=== PATIENT | male | born 1995 | race American Indian/Alaskan Native ===

== ENCOUNTER 2017-02-26 03:53 | Emergency (ER) | payer SELFPAY ==
[2017-02-26 04:05] VITALS: BP 124/73
== END 2017-02-26 04:02 | disposition left against medical advice (07) ==
LOC: ED 03:53
DX: M79.605 Pain in left leg (principal); Z53.21 Procedure and treatment not carried out due to patient leaving prior to being seen by health care provider

== ENCOUNTER 2017-05-09 04:46 | Emergency (ER) | payer SELFPAY ==
[2017-05-09 05:50] VITALS: BP 119/70
--- NOTE | 2017-05-09 07:19 | Emergency Department Report ---
ED Headache HPI - General Chief Complaint: Headache Stated Complaint: HEADACHE Time Seen by Provider: 05/09/17 07:11 - History of Present Illness Allergies/Adverse Reactions: Allergies mushroom Allergy (Verified 03/27/16 20:07) Vomiting mustard Allergy (Uncoded 03/27/16 20:07) Rash Home Medications: Ambulatory Orders Ibuprofen [Motrin] 600 mg PO Q8H PRN #20 tablet 03/27/16 Ciprofloxacin HCl [Ciprofloxacin TAB] 500 mg PO BID #14 tablet 04/19/16 ED Review of Systems ROS: Stated complaint: HEADACHE Other details as noted in HPI ED Past Medical Hx - Past Medical History Hx Psychiatric Treatment: Yes (bipolar, add) Hx Asthma: Yes - Surgical History Past Surgical History?: Yes - Social History Smoking Status: Current Every Day Smoker Substance Use Type: None - Medications Home Medications: Home Medications Medication Instructions Recorded Confirmed Last Taken Type Ibuprofen [Motrin] 600 mg PO Q8H PRN #20 tablet 03/27/16 Unknown Rx Ciprofloxacin HCl [Ciprofloxacin 500 mg PO BID #14 tablet 04/19/16 Unknown Rx TAB] ED Physical Exam - General Limitations: No Limitations ED Course Vital Signs 05/09/17 05:45 Temperature 98.6 F Pulse Rate 90 Respiratory 16 Rate Blood Pressure 119/70 O2 Sat by Pulse 99 Oximetry Critical care attestation.: If time is entered above; I have spent that time in minutes in the direct care of this critically ill patient, excluding procedure time. ED Disposition Condition: Stable Referrals: PRIMARY CARE, [Primary Care Provider] - 3-5 Days
== END 2017-05-09 07:11 | disposition left against medical advice (07) ==
LOC: ED 04:46
DX: R51 Headache (principal); Z53.21 Procedure and treatment not carried out due to patient leaving prior to being seen by health care provider

== ENCOUNTER 2017-06-01 21:06 | Emergency (ER) | payer SELFPAY ==
--- NOTE | 2017-06-02 07:42 | Emergency Department Report ---
ED ENT HPI - General Chief complaint: Upper Respiratory Infection Stated complaint: COLD,RUNNING NOSE,ARM,TOES PAIN Time Seen by Provider: 06/02/17 07:32 Source: patient Mode of arrival: Ambulatory Limitations: No Limitations - History of Present Illness Initial comments: This is a 21-year-old male nontoxic, well nourished in appearance, no acute signs of distress presents to the ED with c/o of rhinorrhea and sore throat 3 days. Patient describes her throat as aching level of 10. Patient denies any drooling or hoarseness. Denies any facial swelling. Denies any chest pain, shortness of breath, fever, chills or nausea, vomiting, headache, stiff neck, abdominal pain, numbness or tingling. Patient denies any recent travels or long car rides. Patient allergies to mustard and mushrooms. Past medical history includes asthma and psychiatric. MD complaint: sore throat, other (rhinorrhea) -: days(s) (3) Location: throat Severity: mild Severity scale (0 -10): 8 Quality: aching Consistency: constant Improves with: none Worsens with: none Associated Symptoms: pain with swallowing, sore throat. denies: fever, cough, gum swelling, toothache, tinnitus, hearing loss, discharge from ear, rhinorrhea - Related Data Previous Rx's Medication Instructions Recorded Last Taken Type Ibuprofen [Motrin] 600 mg PO Q8H PRN #20 tablet 03/27/16 Unknown Rx Ciprofloxacin HCl [Ciprofloxacin 500 mg PO BID #14 tablet 04/19/16 Unknown Rx TAB] Amoxicillin 500 mg PO Q12H #20 capsule 06/02/17 Unknown Rx Nystas/Diphen/Xyl Visc/Mylanta 15 ml MM Q6H PRN 10 Days udc 06/02/17 Unknown Rx [Magic Mouthwash] Allergies Allergy/AdvReac Type Severity Reaction Status Date / Time mushroom Allergy Vomiting Verified 03/27/16 20:07 mustard Allergy Rash Uncoded 03/27/16 20:07 ED Dental HPI - General Chief complaint: Upper Respiratory Infection Stated complaint: COLD,RUNNING NOSE,ARM,TOES PAIN Time Seen by Provider: 06/02/17 07:32 Source: patient Mode of arrival: Ambulatory Limitations: No Limitations - Related Data Previous Rx's Medication Instructions Recorded Last Taken Type Ibuprofen [Motrin] 600 mg PO Q8H PRN #20 tablet 03/27/16 Unknown Rx Ciprofloxacin HCl [Ciprofloxacin 500 mg PO BID #14 tablet 04/19/16 Unknown Rx TAB] Amoxicillin 500 mg PO Q12H #20 capsule 06/02/17 Unknown Rx Nystas/Diphen/Xyl Visc/Mylanta 15 ml MM Q6H PRN 10 Days udc 06/02/17 Unknown Rx [Magic Mouthwash] Allergies Allergy/AdvReac Type Severity Reaction Status Date / Time mushroom Allergy Vomiting Verified 03/27/16 20:07 mustard Allergy Rash Uncoded 03/27/16 20:07 ED Review of Systems ROS: Stated complaint: COLD,RUNNING NOSE,ARM,TOES PAIN Other details as noted in HPI Constitutional: denies: chills, fever Eyes: denies: eye pain, eye discharge, vision change ENT: throat pain. denies: ear pain Respiratory: denies: cough, shortness of breath, wheezing Cardiovascular: denies: chest pain, palpitations Endocrine: no symptoms reported Gastrointestinal: denies: abdominal pain, nausea, diarrhea Genitourinary: denies: urgency, dysuria Musculoskeletal: denies: back pain, joint swelling, arthralgia Skin: denies: rash, lesions Neurological: denies: headache, weakness, paresthesias Psychiatric: denies: anxiety, depression Hematological/Lymphatic: denies: easy bleeding, easy bruising ED Past Medical Hx - Past Medical History Hx Psychiatric Treatment: Yes (bipolar, add) Hx Asthma: Yes - Surgical History Past Surgical History?: No - Social History Smoking Status: Current Every Day Smoker Substance Use Type: None - Medications Home Medications: Home Medications Medication Instructions Recorded Confirmed Last Taken Type Ibuprofen [Motrin] 600 mg PO Q8H PRN #20 tablet 03/27/16 Unknown Rx Ciprofloxacin HCl [Ciprofloxacin 500 mg PO BID #14 tablet 04/19/16 Unknown Rx TAB] Amoxicillin 500 mg PO Q12H #20 capsule 06/02/17 Unknown Rx Nystas/Diphen/Xyl Visc/Mylanta 15 ml MM Q6H PRN 10 Days udc 06/02/17 Unknown Rx [Magic Mouthwash] ED Physical Exam - General Limitations: No Limitations General appearance: alert, in no apparent distress - Head Head exam: Present: atraumatic, normocephalic - Eye Eye exam: Present: normal appearance, PERRL, EOMI Pupils: Present: normal accommodation - ENT ENT exam: Present: mucous membranes moist, TM's normal bilaterally, normal external ear exam - Expanded ENT Exam Expanded Ear exam: Present: normal external inspection Mouth exam: Present: normal external inspection, tongue normal. Absent: drooling, trismus, muffled voice, tongue elevation, laceration Teeth exam: Present: normal inspection Throat exam: Positive: tonsillar erythema, tonsillomegaly (2+), tonsillar exudate, other (Uvula midline. No abscess or swelling noted. ). Negative: R peritonsillar mass, L peritonsillar mass - Neck Neck exam: Present: normal inspection, full ROM, lymphadenopathy (tonsilar left) . Absent: tenderness, meningismus, thyromegaly - Respiratory Respiratory exam: Present: normal lung sounds bilaterally. Absent: respiratory distress, wheezes, rales, rhonchi, stridor, chest wall tenderness, accessory muscle use, decreased breath sounds, prolonged expiratory - Cardiovascular Cardiovascular Exam: Present: regular rate, normal rhythm, normal heart sounds. Absent: bradycardia, tachycardia, irregular rhythm, systolic murmur, diastolic murmur, rubs, gallop - GI/Abdominal GI/Abdominal exam: Present: soft, normal bowel sounds - Rectal Rectal exam: Present: deferred - Extremities Exam Extremities exam: Present: normal inspection, full ROM, normal capillary refill. Absent: tenderness, pedal edema, joint swelling, calf tenderness - Back Exam Back exam: Present: normal inspection, full ROM. Absent: tenderness, CVA tenderness (R), CVA tenderness (L), muscle spasm, paraspinal tenderness, vertebral tenderness, rash noted - Neurological Exam Neurological exam: Present: alert, oriented X3, CN II-XII intact, normal gait, reflexes normal - Psychiatric Psychiatric exam: Present: normal affect, normal mood - Skin Skin exam: Present: warm, dry, intact, normal color. Absent: rash ED Course Vital Signs 06/01/17 06/01/17 22:15 22:52 Temperature 98.8 F 98.8 F Pulse Rate 70 62 Respiratory 18 16 Rate Blood Pressure 145/75 145/75 O2 Sat by Pulse 95 100 Oximetry - Reevaluation(s) Reevaluation #1: 06/02/17 07:41 Patient is speaking in full sentences with no signs of distress noted. ED Medical Decision Making - Medical Decision Making This is a 21-year-old male who presents with tonsillitis exudative. Patient is stable and was examined by me. Negative strep swab. Patient be treated empirically with amoxicillin and Magic mouthwash. Patient received viscous lidocaine in the ED which persisted his symptoms has improved. Patient was instructed Follow-up with a primary care doctor in 3-5 days or if symptoms worsen and continue return to emergency room as soon as possible. At time time of discharge, the patient does not seem toxic or ill in appearance. No acute signs of distress noted. Patient agrees to discharge treatment plan of care. No further questions noted by the patient. Critical care attestation.: If time is entered above; I have spent that time in minutes in the direct care of this critically ill patient, excluding procedure time. ED Disposition Clinical Impression: Tonsillitis with exudate Disposition: DC-01 TO HOME OR SELFCARE Is pt being admited?: No Does the pt Need Aspirin: No Condition: Stable Instructions: Tonsillitis (ED), Amoxicillin (By mouth) Additional Instructions: Follow-up with a primary care doctor in 3-5 days or if symptoms worsen and continue return to emergency room as soon as possible. Prescriptions: Amoxicillin 500 mg PO Q12H #20 capsule Nystas/Diphen/Xyl Visc/Mylanta [Magic Mouthwash] 15 ml MM Q6H PRN 10 Days udc PRN Reason: Sore Throat Referrals: PRIMARY CARE, [Primary Care Provider] - 3-5 Days ARCHANA REDD MD [Staff Physician] - 3-5 Days [facility] [Outside] - 3-5 Days [facility] [Outside] - 3-5 Days Forms: Work/School Release Form(ED)
[2017-06-02] MEDS ORDERED: LIDOCAINE VISCOUS 2% MM NR (07:45)
[2017-06-02 07:56] VITALS: BP 116/54
== END 2017-06-02 07:56 | disposition home or self-care (01) ==
LOC: ED 21:06
DX: J03.90 Acute tonsillitis, unspecified (principal); Z91.018 Allergy to other foods; F31.9 Bipolar disorder, unspecified; J45.909 Unspecified asthma, uncomplicated; F17.200 Nicotine dependence, unspecified, uncomplicated
CPT/HCPCS: 87116; 87400; 87430; 99282

== ENCOUNTER 2017-11-03 17:09 | Emergency (ER) | payer OTHER ==
[2017-11-03] MEDS ORDERED: ULTRAM PO ONE (21:12)
--- NOTE | 2017-11-03 21:15 | Emergency Department Report ---
ED Lower Extremity HPI - General Chief Complaint: Pain General Stated Complaint: BODY ACHE Time Seen by Provider: 11/03/17 21:10 Source: patient Mode of arrival: Ambulatory Limitations: No Limitations - History of Present Illness Initial Comments: This is a 22-year-old -[place] male that presents with bilateral lower extremity muscle aches that started yesterday. Patient reports he was out all day yesterday looking for a job and walked from the train station to multiple locations. He started having achy muscles and bilateral lower extremity which radiated down to his feet. He has not tried taking anything for symptomatic relief at this time. Patient reports pain is aggravated by weightbearing or walking. Denies numbness or tingling, erythema, swelling, and fever. MD Complaint: leg injury (bilateral lower extremity pain) -: days(s) (1 day) Injury: Leg: Right, Left, Foot: Right, Left Type of Injury: unknown Place: street/outdoors Severity: mild Severity scale (0 -10): 7 Improves With: immobilization Worsens With: weight bearing Associated Symptoms: able to partially bear weight, ambulatory - Related Data Previous Rx's Medication Instructions Recorded Last Taken Type Ibuprofen [Motrin] 600 mg PO Q8H PRN #20 tablet 03/27/16 Unknown Rx Ciprofloxacin HCl [Ciprofloxacin 500 mg PO BID #14 tablet 04/19/16 Unknown Rx TAB] Amoxicillin 500 mg PO Q12H #20 capsule 06/02/17 Unknown Rx Nystas/Diphen/Xyl Visc/Mylanta 15 ml MM Q6H PRN 10 Days udc 06/02/17 Unknown Rx [Magic Mouthwash] Ibuprofen [Motrin 800 MG tab] 800 mg PO Q8HR PRN #20 tablet 11/03/17 Unknown Rx Allergies Allergy/AdvReac Type Severity Reaction Status Date / Time mushroom Allergy Vomiting Verified 03/27/16 20:07 mustard Allergy Rash Uncoded 03/27/16 20:07 ED Review of Systems ROS: Stated complaint: BODY ACHE Other details as noted in HPI Constitutional: denies: chills, fever Respiratory: denies: cough, shortness of breath, wheezing Cardiovascular: denies: chest pain, palpitations Gastrointestinal: denies: abdominal pain, nausea, vomiting, diarrhea Musculoskeletal: myalgia (bilateral lower extremity muscle aches). denies: back pain, joint swelling, arthralgia Skin: denies: rash, lesions Neurological: denies: headache, weakness, numbness, paresthesias Psychiatric: denies: anxiety, depression ED Past Medical Hx - Past Medical History Hx Psychiatric Treatment: Yes (bipolar, add) Hx Asthma: Yes - Social History Smoking Status: Current Every Day Smoker Substance Use Type: None - Medications Home Medications: Home Medications Medication Instructions Recorded Confirmed Last Taken Type Ibuprofen [Motrin] 600 mg PO Q8H PRN #20 tablet 03/27/16 Unknown Rx Ciprofloxacin HCl [Ciprofloxacin 500 mg PO BID #14 tablet 04/19/16 Unknown Rx TAB] Amoxicillin 500 mg PO Q12H #20 capsule 06/02/17 Unknown Rx Nystas/Diphen/Xyl Visc/Mylanta 15 ml MM Q6H PRN 10 Days udc 06/02/17 Unknown Rx [Magic Mouthwash] Ibuprofen [Motrin 800 MG tab] 800 mg PO Q8HR PRN #20 tablet 11/03/17 Unknown Rx ED Physical Exam - General Limitations: No Limitations General appearance: alert, in no apparent distress - Respiratory Respiratory exam: Present: normal lung sounds bilaterally. Absent: respiratory distress - Cardiovascular Cardiovascular Exam: Present: regular rate, normal rhythm, normal heart sounds. Absent: systolic murmur, diastolic murmur, rubs, gallop - GI/Abdominal GI/Abdominal exam: Present: soft, normal bowel sounds. Absent: organomegaly, mass - Extremities Exam Extremities exam: Present: normal inspection, full ROM, normal capillary refill. Absent: pedal edema, joint swelling, calf tenderness - Neurological Exam Neurological exam: Present: alert, oriented X3, normal gait - Psychiatric Psychiatric exam: Present: normal affect, normal mood - Skin Skin exam: Present: warm, dry, intact, normal color. Absent: rash ED Course Vital Signs 11/03/17 11/03/17 18:17 21:38 Temperature 98.9 F 98 F Pulse Rate 101 H 73 Respiratory 18 18 Rate Blood Pressure 151/104 Blood Pressure 116/81 [Right] O2 Sat by Pulse 97 98 Oximetry ED Lower Extremity MDM - Medical Decision Making This is a 22 y.o. male presents with bilateral lower extremity pain that started yesterday. Patient was examined by me. No acute signs of distress. Blood pressure slightly elevated on arrival. Given tramadol 50 mg by mouth once daily ER. Reassessment of BP 116/81. Patient reports feeling better after pain medication. No labs or radiograph obtained. Start ibuprofen for pain. Plan discussed with patient to discharge home and treat outpatient. He agrees with ER plan. Patient discharged home in stable condition. Follow up with PCP at [facility] in 2-3 days. Critical care attestation.: If time is entered above; I have spent that time in minutes in the direct care of this critically ill patient, excluding procedure time. ED Disposition Clinical Impression: Leg pain, bilateral Muscle strain of left lower leg Qualifiers: Encounter type: initial encounter Qualified Code(s): S86.912A - Strain of unspecified muscle(s) and tendon(s) at lower leg level, left leg, initial encounter Muscle strain of right lower extremity Qualifiers: Encounter type: initial encounter Qualified Code(s): S86.911A - Strain of unspecified muscle(s) and tendon(s) at lower leg level, right leg, initial encounter Disposition: TO HOME OR SELFCARE Is pt being admited?: No Does the pt Need Aspirin: No Condition: Stable Instructions: Muscle Strain (ED) Additional Instructions: Rest Use ice or heat on affected area for 20 minutes and off for 2 hours. Take pain medication every 6 hours as needed for pain. Follow up with Primary Care Provider in 2-3 days. Prescriptions: Ibuprofen [Motrin 800 MG tab] 800 mg PO Q8HR PRN #20 tablet PRN Reason: Pain Referrals: [facility] [Outside] - 3-5 Days [facility] [Outside] - 3-5 Days [facility] [Outside] - 3-5 Days Time of Disposition: 22:42 Print Language: CITIZEN OF [place]
[2017-11-03 21:38] VITALS: BP 116/81
== END 2017-11-03 22:49 | disposition home or self-care (01) ==
LOC: ED 17:09
DX: S86.912A Strain of unspecified muscle(s) and tendon(s) at lower leg level, left leg, initial encounter (principal); S86.911A Strain of unspecified muscle(s) and tendon(s) at lower leg level, right leg, initial encounter; F31.9 Bipolar disorder, unspecified; F17.200 Nicotine dependence, unspecified, uncomplicated; J45.909 Unspecified asthma, uncomplicated; Z91.018 Allergy to other foods; X58.XXXA Exposure to other specified factors, initial encounter; Y93.01 Activity, walking, marching and hiking; Y92.410 Unspecified street and highway as the place of occurrence of the external cause; Y99.8 Other external cause status

== ENCOUNTER 2017-11-11 10:40 | Emergency (ER) | payer OTHER ==
[2017-11-11 10:57] VITALS: BP 140/95
== END 2017-11-11 13:39 | disposition left against medical advice (07) ==
LOC: ED 10:40
DX: M79.89 Other specified soft tissue disorders (principal); Z53.21 Procedure and treatment not carried out due to patient leaving prior to being seen by health care provider

== ENCOUNTER 2017-11-14 23:09 | Emergency (ER) | payer SELFPAY ==
[2017-11-14 23:17] VITALS: BP 128/85
[2017-11-14 23:56] LABS: Basophils # (Auto) 0.1 K/mm3 (0.0-0.1); Basophils % (Auto) 0.9 % (0.0-1.8); Eosinophils # (Auto) 0.2 K/mm3 (0.0-0.4); Eosinophils % (Auto) 3.4 % (0.0-4.3); Hematocrit 38.1 % (35.5-45.6); Hemoglobin 12.5 gm/dl (11.8-15.2); Lymphocytes # (Auto) 2.5 K/mm3 (1.2-5.4); Lymphocytes % (Auto) 33.8 % (13.4-35.0); Mean Corpuscular HGB Conc 33 % (32-34); Mean Corpuscular Hemoglobin 26 pg (28-32); Mean Corpuscular Volume 80 fl (84-94); Monocytes # (Auto) 0.6 K/mm3 (0.0-0.8); Monocytes % (Auto) 7.9 % (0.0-7.3); Platelet Count 277 K/mm3 (140-440); Red Blood Count 4.76 M/mm3 (3.65-5.03); Red Cell Distribution Width 13.6 % (13.2-15.2)
[2017-11-15 00:10] LABS: BUN/Creatinine Ratio 11; Blood Urea Nitrogen 9 mg/dL (9-20); Calcium 9.2 mg/dL (8.4-10.2); Hemolysis Index 28
[2017-11-15 00:16] LABS: Bilirubin,Urine NEG (Negative); Blood,Urine NEG (Negative); Color,Urine Yellow (Yellow); Mucus,Urine 2+ /HPF; Protein,Urine <15 mg/dL mg/dL (Negative)
[2017-11-15 00:19] LABS: Amphetamine Screen,Urine PRESUMPTIVE NEGATIVE; Benzodiazepines Screen,Urine PRESUMPTIVE NEGATIVE; Cannabinoid Screen,Urine PRESUMPTIVE NEGATIVE; Cocaine Screen,Urine PRESUMPTIVE NEGATIVE; Methadone Screen,Urine PRESUMPTIVE NEGATIVE; Opiate Screen,Urine PRESUMPTIVE NEGATIVE
[2017-11-15] MEDS ORDERED: ZOFRAN ONE (00:31)
[2017-11-15] MEDS ORDERED: BENTYL IM ONE (00:31)
[2017-11-15] MEDS ORDERED: TORADOL IM ONE (01:32)
--- NOTE | 2017-11-15 01:37 | Emergency Department Report ---
ED Lower Extremity HPI - General Chief Complaint: Altered Mental Status Stated Complaint: RIGHT LEG PAIN Time Seen by Provider: 11/15/17 00:52 Source: patient Mode of arrival: Ambulatory Limitations: Altered Mental Status - History of Present Illness Initial Comments: 22-year-old male with a past medical history asthma, ADD, and bipolar disorder presents to the hospital complaining of bilateral leg aching pain for the last 2 -3 weeks. Pain is mild to moderate in intensity. Currently the right is greater than left but sometimes the left hurts more as well. Patient states he has been doing a lot of walking. As per triage patient states that something hit the back of his leg and patient was not making sense and rambling in triage. Patient's currently alert and oriented 3 and denies hallucinations, homicidal, suicidal ideation. Currently living in a hotel. No complaints of chest pain, shortness of breath, recent travel, or history of PE/DVT. Patient was seen here November 03 for this same complaint and received tramadol prescription. He then came on November 11 but left prior to M.D. evaluation - Related Data Previous Rx's Medication Instructions Recorded Last Taken Type Ibuprofen [Motrin] 600 mg PO Q8H PRN #20 tablet 03/27/16 Unknown Rx Ciprofloxacin HCl [Ciprofloxacin 500 mg PO BID #14 tablet 04/19/16 Unknown Rx TAB] Amoxicillin 500 mg PO Q12H #20 capsule 06/02/17 Unknown Rx Nystas/Diphen/Xyl Visc/Mylanta 15 ml MM Q6H PRN 10 Days udc 06/02/17 Unknown Rx [Magic Mouthwash] Ibuprofen [Motrin 800 MG tab] 800 mg PO Q8HR PRN #20 tablet 11/03/17 Unknown Rx traMADol [Ultram 50 MG tab] 50 mg PO Q6HR PRN #20 tablet 11/15/17 Unknown Rx Allergies Allergy/AdvReac Type Severity Reaction Status Date / Time mushroom Allergy Vomiting Verified 11/11/17 10:57 mustard Allergy Rash Uncoded 11/11/17 10:57 ED Review of Systems ROS: Stated complaint: RIGHT LEG PAIN Other details as noted in HPI Comment: All other systems reviewed and negative ED Past Medical Hx - Past Medical History Hx Psychiatric Treatment: Yes (bipolar, add) Hx Asthma: Yes - Social History Smoking Status: Current Every Day Smoker Substance Use Type: Alcohol - Medications Home Medications: Home Medications Medication Instructions Recorded Confirmed Last Taken Type Ibuprofen [Motrin] 600 mg PO Q8H PRN #20 tablet 03/27/16 Unknown Rx Ciprofloxacin HCl [Ciprofloxacin 500 mg PO BID #14 tablet 04/19/16 Unknown Rx TAB] Amoxicillin 500 mg PO Q12H #20 capsule 06/02/17 Unknown Rx Nystas/Diphen/Xyl Visc/Mylanta 15 ml MM Q6H PRN 10 Days udc 06/02/17 Unknown Rx [Magic Mouthwash] Ibuprofen [Motrin 800 MG tab] 800 mg PO Q8HR PRN #20 tablet 11/03/17 Unknown Rx traMADol [Ultram 50 MG tab] 50 mg PO Q6HR PRN #20 tablet 11/15/17 Unknown Rx ED Physical Exam - General Limitations: Altered Mental Status - Other Other exam information: General: No limitations, patient is alert in no acute distress, poor hygiene Head exam: Atraumatic, normocephalic Eyes exam: Normal appearance ENT: Moist mucous membrane, normal oropharynx Neck exam: Normal inspection, full range of motion, no meningismus nontender Respiratory exam: Clear to auscultation bilateral, no wheezes, rales, crackles Cardiovascular: Normal rate and rhythm, normal heart sounds Abdomen: Soft, nondistended, and nontender, with normal bowel sounds, no rebound, or guarding Extremity: Full range of motion normal inspection no deformity, edema, no leg asymmetry, no warmth, no erythema, equal bilateral 2+ DP pulses. Negative Homans sign Back: Normal Inspection, full range of motion, no tenderness Neurologic: Alert, oriented x3, cranial nerves intact, no motor or sensory deficit Psychiatric: normal affect, normal mood Skin: Warm, dry, intact ED Course Vital Signs 11/14/17 11/14/17 11/15/17 23:10 23:31 00:26 Temperature 98.9 F 98.9 F Pulse Rate 95 H 98 H 91 H Respiratory 20 16 14 Rate Blood Pressure 128/85 128/85 Blood Pressure 128/85 [Left] O2 Sat by Pulse 98 94 98 Oximetry - Reevaluation(s) Reevaluation #1: 11/15/17 01:36 toradol for pain ED Lower Extremity MDM - Lab Data Result diagrams: 11/14/17 23:45 11/14/17 23:45 Lab Results 11/14/17 11/14/17 11/14/17 Range/Units 22:45 22:45 23:45 WBC (4.5-11.0) K/mm3 RBC (3.65-5.03) M/mm3 Hgb (11.8-15.2) gm/dl Hct (35.5-45.6) % MCV (84-94) fl MCH (28-32) pg MCHC (32-34) % RDW (13.2-15.2) % Plt Count (140-440) K/mm3 Lymph % (Auto) (13.4-35.0) % [place] % (Auto) (0.0-7.3) % Eos % (Auto) (0.0-4.3) % Baso % (Auto) (0.0-1.8) % Lymph # (1.2-5.4) K/mm3 [place] # (0.0-0.8) K/mm3 Eos # (0.0-0.4) K/mm3 Baso # (0.0-0.1) K/mm3 Seg Neutrophils % (40.0-70.0) % Seg Neutrophils # (1.8-7.7) K/mm3 Sodium (137-145) mmol/L Potassium (3.6-5.0) mmol/L Chloride (98-107) mmol/L Carbon Dioxide (22-30) mmol/L Anion Gap mmol/L BUN (9-20) mg/dL Creatinine (0.8-1.5) mg/dL Estimated GFR ml/min BUN/Creatinine Ratio % Glucose (75-100) mg/dL Calcium (8.4-10.2) mg/dL Urine Color Yellow (Yellow) Urine Turbidity Clear (Clear) Urine pH 6.0 (5.0-7.0) Ur Specific [place] 1.027 (1.003-1.030) Urine Protein <15 mg/dl (Negative) mg/dL Urine Glucose (UA) Neg (Negative) mg/dL Urine Ketones Tr (Negative) mg/dL Urine Blood Neg (Negative) Urine Nitrite Neg (Negative) Urine Bilirubin Neg (Negative) Urine Urobilinogen 4.0 (<2.0) mg/dL Ur Leukocyte Esterase Neg (Negative) Urine WBC (Auto) 1.0 (0.0-6.0) /HPF Urine RBC (Auto) 2.0 (0.0-6.0) /HPF U Epithel Cells (Auto) < 1.0 (0-13.0) /HPF Urine Mucus 2+ /HPF Salicylates < 0.3 L (2.8-20.0) mg/dL Urine Opiates Screen Presumptive negative Urine Methadone Screen Presumptive negative Acetaminophen (10.0-30.0) ug/mL Ur Barbiturates Screen Presumptive negative Ur Phencyclidine Scrn Presumptive negative Ur Amphetamines Screen Presumptive negative U Benzodiazepines Scrn Presumptive negative Urine Cocaine Screen Presumptive negative U Marijuana (THC) Screen Presumptive negative Drugs of Abuse Note Disclamer Plasma/Serum Alcohol (0-0.07) % 11/14/17 11/14/17 11/14/17 Range/Units 23:45 23:45 23:45 WBC (4.5-11.0) K/mm3 RBC (3.65-5.03) M/mm3 Hgb (11.8-15.2) gm/dl Hct (35.5-45.6) % MCV (84-94) fl MCH (28-32) pg MCHC (32-34) % RDW (13.2-15.2) % Plt Count (140-440) K/mm3 Lymph % (Auto) (13.4-35.0) % [place] % (Auto) (0.0-7.3) % Eos % (Auto) (0.0-4.3) % Baso % (Auto) (0.0-1.8) % Lymph # (1.2-5.4) K/mm3 [place] # (0.0-0.8) K/mm3 Eos # (0.0-0.4) K/mm3 Baso # (0.0-0.1) K/mm3 Seg Neutrophils % (40.0-70.0) % Seg Neutrophils # (1.8-7.7) K/mm3 Sodium 144 (137-145) mmol/L Potassium 3.9 (3.6-5.0) mmol/L Chloride 103.2 (98-107) mmol/L Carbon Dioxide 30 (22-30) mmol/L Anion Gap 15 mmol/L BUN 9 (9-20) mg/dL Creatinine 0.8 (0.8-1.5) mg/dL Estimated GFR > 60 ml/min BUN/Creatinine Ratio 11 % Glucose 85 (75-100) mg/dL Calcium 9.2 (8.4-10.2) mg/dL Urine Color (Yellow) Urine Turbidity (Clear) Urine pH (5.0-7.0) Ur Specific [place] (1.003-1.030) Urine Protein (Negative) mg/dL Urine Glucose (UA) (Negative) mg/dL Urine Ketones (Negative) mg/dL Urine Blood (Negative) Urine Nitrite (Negative) Urine Bilirubin (Negative) Urine Urobilinogen (<2.0) mg/dL Ur Leukocyte Esterase (Negative) Urine WBC (Auto) (0.0-6.0) /HPF Urine RBC (Auto) (0.0-6.0) /HPF U Epithel Cells (Auto) (0-13.0) /HPF Urine Mucus /HPF Salicylates (2.8-20.0) mg/dL Urine Opiates Screen Urine Methadone Screen Acetaminophen < 5.0 L (10.0-30.0) ug/mL Ur Barbiturates Screen Ur Phencyclidine Scrn Ur Amphetamines Screen U Benzodiazepines Scrn Urine Cocaine Screen U Marijuana (THC) Screen Drugs of Abuse Note Plasma/Serum Alcohol < 0.01 (0-0.07) % 11/14/17 Range/Units 23:45 WBC 7.3 (4.5-11.0) K/mm3 RBC 4.76 (3.65-5.03) M/mm3 Hgb 12.5 (11.8-15.2) gm/dl Hct 38.1 (35.5-45.6) % MCV 80 L (84-94) fl MCH 26 L (28-32) pg MCHC 33 (32-34) % RDW 13.6 (13.2-15.2) % Plt Count 277 (140-440) K/mm3 Lymph % (Auto) 33.8 (13.4-35.0) % [place] % (Auto) 7.9 H (0.0-7.3) % Eos % (Auto) 3.4 (0.0-4.3) % Baso % (Auto) 0.9 (0.0-1.8) % Lymph # 2.5 (1.2-5.4) K/mm3 [place] # 0.6 (0.0-0.8) K/mm3 Eos # 0.2 (0.0-0.4) K/mm3 Baso # 0.1 (0.0-0.1) K/mm3 Seg Neutrophils % 54.0 (40.0-70.0) % Seg Neutrophils # 3.9 (1.8-7.7) K/mm3 Sodium (137-145) mmol/L Potassium (3.6-5.0) mmol/L Chloride (98-107) mmol/L Carbon Dioxide (22-30) mmol/L Anion Gap mmol/L BUN (9-20) mg/dL Creatinine (0.8-1.5) mg/dL Estimated GFR ml/min BUN/Creatinine Ratio % Glucose (75-100) mg/dL Calcium (8.4-10.2) mg/dL Urine Color (Yellow) Urine Turbidity (Clear) Urine pH (5.0-7.0) Ur Specific [place] (1.003-1.030) Urine Protein (Negative) mg/dL Urine Glucose (UA) (Negative) mg/dL Urine Ketones (Negative) mg/dL Urine Blood (Negative) Urine Nitrite (Negative) Urine Bilirubin (Negative) Urine Urobilinogen (<2.0) mg/dL Ur Leukocyte Esterase (Negative) Urine WBC (Auto) (0.0-6.0) /HPF Urine RBC (Auto) (0.0-6.0) /HPF U Epithel Cells (Auto) (0-13.0) /HPF Urine Mucus /HPF Salicylates (2.8-20.0) mg/dL Urine Opiates Screen Urine Methadone Screen Acetaminophen (10.0-30.0) ug/mL Ur Barbiturates Screen Ur Phencyclidine Scrn Ur Amphetamines Screen U Benzodiazepines Scrn Urine Cocaine Screen U Marijuana (THC) Screen Drugs of Abuse Note Plasma/Serum Alcohol (0-0.07) % - Medical Decision Making Patient d-dimer is mildly elevated. He denies any chest pain or shortness of breath and has normal vitals. Lovenox provided and patient will be advised to come back for outpatient Doppler in the morning. Order has been placed with vascular lab - Differential Diagnosis muscle cramps, electrolyte abnormality, rhabdomyolysis, DVT Critical Care Time: No Critical care attestation.: If time is entered above; I have spent that time in minutes in the direct care of this critically ill patient, excluding procedure time. ED Disposition Clinical Impression: Leg strain Disposition: DC-01 TO HOME OR SELFCARE Is pt being admited?: No Does the pt Need Aspirin: No Condition: Stable Instructions: Leg Cramps (ED) Additional Instructions: You are likely having cramps however, your blood clot screening test is elevated. You received a 1 time dose of a blood thinner shot. Come back ithe the hospital today 11/15 to the vascular department (not the ER) to receive your ultrasound of the legs to rule out a blood clot. You should receive a call from the vascular Department in the morning telling you what time to come back to receive your test. If you do not hear back by 10 AM please call the number to the vascular department at [phone] Referrals: BOO ENRIQUEZ MD [Primary Care Provider] - 3-[address] [facility] [Provider Group] - 3-5 Days Time of Disposition: 02:52
[2017-11-15] MEDS ORDERED: LOVENOX SUB-Q ONE (02:42)
== END 2017-11-15 03:27 | disposition home or self-care (01) ==
LOC: ED 23:09
DX: S86.911A Strain of unspecified muscle(s) and tendon(s) at lower leg level, right leg, initial encounter (principal); J45.909 Unspecified asthma, uncomplicated; F31.9 Bipolar disorder, unspecified; F17.200 Nicotine dependence, unspecified, uncomplicated; Z91.018 Allergy to other foods; Z79.899 Other long term (current) drug therapy; X58.XXXA Exposure to other specified factors, initial encounter; Y93.89 Activity, other specified; Y99.8 Other external cause status; Y92.89 Other specified places as the place of occurrence of the external cause
CPT/HCPCS: 36415; 80048; 80307; 81001; 82550; 85025; 85379; 96372; 99283; G0480; J1650; J1885; 80320; J0500; J2405

== ENCOUNTER 2017-11-22 12:59 | Emergency (ER) | payer SELFPAY ==
--- NOTE | 2017-11-22 13:50 | Emergency Department Report ---
- General Chief complaint: Wound/Laceration Stated complaint: LEFT ANKLE INFECTION Time Seen by Provider: 11/22/17 13:26 Source: patient Mode of arrival: Ambulatory Limitations: No Limitations - History of Present Illness Initial comments: 22-year-old male past medical history bipolar disorder presents with complaint of concern for infected bug bites to left ankle. Patient states that he believes he saw a spider bite his left ankle approximately 5-6 days ago. Initially skin was much more irritated than it is now but continues to have skin irritation overlying lesions in area of left ankle. Denies any other lesions and to any other body part. Denies any fevers or chills denies any significant pus drainage. States that they drained in the first 2 days and have since become dry. Denies any body aches. Awake alert and oriented 3 not in acute distress. Ambulatory patient states that he has no difficulty walking on ankle. MD complaint: insect bite/sting Onset/Timin -: days(s) Location: LLE Severity: mild Severity scale (0 -10): 3 Quality: burning, aching Consistency: intermittent Worsens with: palpation Associated symptoms: denies other symptoms Treatments Prior to Arrival: bandages - Related Data Previous Rx's Medication Instructions Recorded Last Taken Type Ibuprofen [Motrin] 600 mg PO Q8H PRN #20 tablet 03/27/16 Unknown Rx Ciprofloxacin HCl [Ciprofloxacin 500 mg PO BID #14 tablet 04/19/16 Unknown Rx TAB] Amoxicillin 500 mg PO Q12H #20 capsule 06/02/17 Unknown Rx Nystas/Diphen/Xyl Visc/Mylanta 15 ml MM Q6H PRN 10 Days udc 06/02/17 Unknown Rx [Magic Mouthwash] Ibuprofen [Motrin 800 MG tab] 800 mg PO Q8HR PRN #20 tablet 11/03/17 Unknown Rx traMADol [Ultram 50 MG tab] 50 mg PO Q6HR PRN #20 tablet 11/15/17 Unknown Rx Ibuprofen [Motrin] 600 mg PO Q8H PRN #20 tablet 11/22/17 Unknown Rx Mupirocin [Bactroban 2% OINT] 1 applic TP TID #1 tube 11/22/17 Unknown Rx Sulfamethoxazole/Trimethoprim 1 each PO BID #10 tablet 11/22/17 Unknown Rx [Bactrim DS TAB] Allergies Allergy/AdvReac Type Severity Reaction Status Date / Time mushroom Allergy Vomiting Verified 11/11/17 10:57 mustard Allergy Rash Uncoded 11/11/17 10:57 Abscess Boil HPI - HPI Chief Complaint: Wound/Laceration Stated Complaint: LEFT ANKLE INFECTION Time Seen by Provider: 11/22/17 13:26 Home Medications: Previous Rx's Medication Instructions Recorded Last Taken Type Ibuprofen [Motrin] 600 mg PO Q8H PRN #20 tablet 03/27/16 Unknown Rx Ciprofloxacin HCl [Ciprofloxacin 500 mg PO BID #14 tablet 04/19/16 Unknown Rx TAB] Amoxicillin 500 mg PO Q12H #20 capsule 06/02/17 Unknown Rx Nystas/Diphen/Xyl Visc/Mylanta 15 ml MM Q6H PRN 10 Days udc 06/02/17 Unknown Rx [Magic Mouthwash] Ibuprofen [Motrin 800 MG tab] 800 mg PO Q8HR PRN #20 tablet 11/03/17 Unknown Rx traMADol [Ultram 50 MG tab] 50 mg PO Q6HR PRN #20 tablet 11/15/17 Unknown Rx Ibuprofen [Motrin] 600 mg PO Q8H PRN #20 tablet 11/22/17 Unknown Rx Mupirocin [Bactroban 2% OINT] 1 applic TP TID #1 tube 11/22/17 Unknown Rx Sulfamethoxazole/Trimethoprim 1 each PO BID #10 tablet 11/22/17 Unknown Rx [Bactrim DS TAB] Allergies/Adverse Reactions: Allergies Allergy/AdvReac Type Severity Reaction Status Date / Time mushroom Allergy Vomiting Verified 11/11/17 10:57 mustard Allergy Rash Uncoded 11/11/17 10:57 ED Review of Systems ROS: Stated complaint: LEFT ANKLE INFECTION Other details as noted in HPI Constitutional: denies: chills, fever Eyes: denies: eye pain, eye discharge, vision change ENT: denies: ear pain, throat pain Respiratory: denies: cough, shortness of breath, wheezing Cardiovascular: denies: chest pain, palpitations Endocrine: no symptoms reported Gastrointestinal: denies: abdominal pain, nausea, diarrhea Genitourinary: denies: urgency, dysuria Musculoskeletal: denies: back pain, joint swelling, arthralgia Skin: as per HPI, lesions. denies: rash Neurological: denies: headache, weakness, paresthesias Psychiatric: denies: anxiety, depression Hematological/Lymphatic: denies: easy bleeding, easy bruising ED Past Medical Hx - Past Medical History Hx Psychiatric Treatment: Yes (bipolar, add-controlled) Hx Asthma: Yes - Surgical History Past Surgical History?: No - Social History Smoking Status: Current Some Day Smoker Substance Use Type: Marijuana - Medications Home Medications: Home Medications Medication Instructions Recorded Confirmed Last Taken Type Ibuprofen [Motrin] 600 mg PO Q8H PRN #20 tablet 03/27/16 Unknown Rx Ciprofloxacin HCl [Ciprofloxacin 500 mg PO BID #14 tablet 04/19/16 Unknown Rx TAB] Amoxicillin 500 mg PO Q12H #20 capsule 06/02/17 Unknown Rx Nystas/Diphen/Xyl Visc/Mylanta 15 ml MM Q6H PRN 10 Days udc 06/02/17 Unknown Rx [Magic Mouthwash] Ibuprofen [Motrin 800 MG tab] 800 mg PO Q8HR PRN #20 tablet 11/03/17 Unknown Rx traMADol [Ultram 50 MG tab] 50 mg PO Q6HR PRN #20 tablet 11/15/17 Unknown Rx Ibuprofen [Motrin] 600 mg PO Q8H PRN #20 tablet 11/22/17 Unknown Rx Mupirocin [Bactroban 2% OINT] 1 applic TP TID #1 tube 11/22/17 Unknown Rx Sulfamethoxazole/Trimethoprim 1 each PO BID #10 tablet 11/22/17 Unknown Rx [Bactrim DS TAB] ED Physical Exam - General Limitations: No Limitations General appearance: alert, in no apparent distress - Head Head exam: Present: atraumatic, normocephalic - Eye Eye exam: Present: normal appearance - ENT ENT exam: Present: mucous membranes moist - Neck Neck exam: Present: normal inspection - Respiratory Respiratory exam: Present: normal lung sounds bilaterally. Absent: respiratory distress - Cardiovascular Cardiovascular Exam: Present: regular rate, normal rhythm. Absent: systolic murmur, diastolic murmur, rubs, gallop - GI/Abdominal GI/Abdominal exam: Present: soft, normal bowel sounds - Rectal Rectal exam: Present: deferred - Extremities Exam Extremities exam: Present: normal inspection - Expanded Lower Extremity Exam Left Ankle exam: Present: tenderness (2 small 1 cm diameter lesions/healing ulcerations on skin. Does not appear to be fluctuant no palpable fluctuance. No overt cellulitis on exam.) Neuro vascular tendon exam: Present: no vascular compromise (normal distal pulses on palpation) - Back Exam Back exam: Present: normal inspection - Neurological Exam Neurological exam: Present: alert, oriented X3 - Psychiatric Psychiatric exam: Present: normal affect, normal mood - Skin Skin exam: Present: warm, dry, intact, normal color. Absent: rash ED Course Vital Signs 11/22/17 13:05 Temperature 98.8 F Pulse Rate 89 Respiratory 16 Rate Blood Pressure 119/82 O2 Sat by Pulse 100 Oximetry ED Medical Decision Making - Medical Decision Making A/P: Infected bug bites left ankle 1-topical Bactroban, short course Bactrim 2-Motrin when necessary 3-no significant degree of cellulitis on exam. I advised patient that if he notices he is developing fever or chills or significant redness or purulent drainage and fluctuance at the site of current lesions to return to ED for reevaluation 4-follow-up with primary care Critical care attestation.: If time is entered above; I have spent that time in minutes in the direct care of this critically ill patient, excluding procedure time. ED Disposition Clinical Impression: Infected insect bite of ankle Qualifiers: Encounter type: initial encounter Laterality: left Qualified Code(s): S90.562A - Insect bite (nonvenomous), left ankle, initial encounter Disposition: - TO HOME OR SELFCARE Is pt being admited?: No Does the pt Need Aspirin: No Condition: Stable Instructions: Insect Bite or Sting (ED) Prescriptions: Ibuprofen [Motrin] 600 mg PO Q8H PRN #20 tablet PRN Reason: Pain Mupirocin [Bactroban 2% OINT] 1 applic TP TID #1 tube Sulfamethoxazole/Trimethoprim [Bactrim DS TAB] 1 each PO BID #10 tablet Referrals: [facility] [Provider Group] - 3-5 Days Time of Disposition: 13:50
[2017-11-22] MEDS ORDERED: BACTRIM DS PO ONE (13:56)
[2017-11-22 14:30] VITALS: BP 120/73
== END 2017-11-22 14:31 | disposition home or self-care (01) ==
LOC: ED 12:59
DX: S90.562A Insect bite (nonvenomous), left ankle, initial encounter (principal); F17.200 Nicotine dependence, unspecified, uncomplicated; F12.10 Cannabis abuse, uncomplicated; Z91.018 Allergy to other foods; W57.XXXA Bitten or stung by nonvenomous insect and other nonvenomous arthropods, initial encounter; Y93.89 Activity, other specified; Y92.89 Other specified places as the place of occurrence of the external cause; Y99.8 Other external cause status
CPT/HCPCS: 99282

== ENCOUNTER 2017-12-30 10:48 | Emergency (ER) | payer SELFPAY ==
[2017-12-30 11:27] VITALS: BP 119/78
--- NOTE | 2017-12-30 13:25 | Emergency Department Report ---
ED Medical Clearance HPI - General Chief complaint: Psych Stated complaint: MENTAL EVAL Time Seen by Provider: 12/30/17 13:15 Source: patient Mode of arrival: Ambulatory - History of Present Illness Initial comments: This is a 22-year-old male nontoxic in appearance with no signs of distress presents to the ER requesting IV fluids. Patient stated that this morning he got [place] and came to the ER for IV fluids to rehydrate himself. Patient currently denies any symptoms of headache, chest pain, short of breath, numbness, tingling, abdominal pain, back pain. Patient denies any suicidal or homicidal occasions. Patient stated is able to drink fluids by mouth with no vomiting or nausea. Patient denies any altered mental status. Patient denies any drug allergies. PMH includes bipolar and asthma. -: This morning Alledged Intoxication: No Traumatic Symptoms: denies traumatic injury Associated Symptoms: denies other symptoms. denies: chest pain, shortness of breath, palpitations, diaphoresis, confusion, cough, fever/chills, headaches, anorexia, malaise, nausea/vomiting, rash, seizure, syncope, weakness Treatments Prior to Arrival: none Home medications: Previous Rx's Medication Instructions Recorded Last Taken Type Ibuprofen [Motrin] 600 mg PO Q8H PRN #20 tablet 03/27/16 Unknown Rx Ciprofloxacin HCl [Ciprofloxacin 500 mg PO BID #14 tablet 04/19/16 Unknown Rx TAB] Amoxicillin 500 mg PO Q12H #20 capsule 06/02/17 Unknown Rx Nystas/Diphen/Xyl Visc/Mylanta 15 ml MM Q6H PRN 10 Days udc 06/02/17 Unknown Rx [Magic Mouthwash] Ibuprofen [Motrin 800 MG tab] 800 mg PO Q8HR PRN #20 tablet 11/03/17 Unknown Rx traMADol [Ultram 50 MG tab] 50 mg PO Q6HR PRN #20 tablet 11/15/17 Unknown Rx Ibuprofen [Motrin] 600 mg PO Q8H PRN #20 tablet 11/22/17 Unknown Rx Mupirocin [Bactroban 2% OINT] 1 applic TP TID #1 tube 11/22/17 Unknown Rx Sulfamethoxazole/Trimethoprim 1 each PO BID #10 tablet 11/22/17 Unknown Rx [Bactrim DS TAB] Allergies/Adverse reactions: Allergies Allergy/AdvReac Type Severity Reaction Status Date / Time mushroom Allergy Vomiting Verified 11/11/17 10:57 mustard Allergy Rash Uncoded 11/11/17 10:57 ED Review of Systems ROS: Stated complaint: MENTAL EVAL Other details as noted in HPI Constitutional: denies: chills, fever Eyes: denies: eye pain, eye discharge, vision change ENT: denies: ear pain, throat pain Respiratory: denies: cough, shortness of breath, wheezing Cardiovascular: denies: chest pain, palpitations Endocrine: no symptoms reported Gastrointestinal: denies: abdominal pain, nausea, diarrhea Genitourinary: denies: urgency, dysuria Musculoskeletal: denies: back pain, joint swelling, arthralgia Skin: denies: rash, lesions Neurological: denies: headache, weakness, paresthesias Psychiatric: denies: anxiety, depression Hematological/Lymphatic: denies: easy bleeding, easy bruising ED Past Medical Hx - Past Medical History Previous Medical History?: Yes Hx Psychiatric Treatment: Yes (bipolar, add-controlled) Hx Asthma: Yes - Surgical History Past Surgical History?: No - Social History Smoking Status: Never Smoker - Medications Home Medications: Home Medications Medication Instructions Recorded Confirmed Last Taken Type Ibuprofen [Motrin] 600 mg PO Q8H PRN #20 tablet 03/27/16 Unknown Rx Ciprofloxacin HCl [Ciprofloxacin 500 mg PO BID #14 tablet 04/19/16 Unknown Rx TAB] Amoxicillin 500 mg PO Q12H #20 capsule 06/02/17 Unknown Rx Nystas/Diphen/Xyl Visc/Mylanta 15 ml MM Q6H PRN 10 Days udc 06/02/17 Unknown Rx [Magic Mouthwash] Ibuprofen [Motrin 800 MG tab] 800 mg PO Q8HR PRN #20 tablet 11/03/17 Unknown Rx traMADol [Ultram 50 MG tab] 50 mg PO Q6HR PRN #20 tablet 11/15/17 Unknown Rx Ibuprofen [Motrin] 600 mg PO Q8H PRN #20 tablet 11/22/17 Unknown Rx Mupirocin [Bactroban 2% OINT] 1 applic TP TID #1 tube 11/22/17 Unknown Rx Sulfamethoxazole/Trimethoprim 1 each PO BID #10 tablet 11/22/17 Unknown Rx [Bactrim DS TAB] ED Physical Exam - General Limitations: No Limitations General appearance: alert, in no apparent distress - Head Head exam: Present: atraumatic, normocephalic - Eye Eye exam: Present: normal appearance, PERRL, EOMI Pupils: Present: normal accommodation - ENT ENT exam: Present: normal exam, mucous membranes moist - Neck Neck exam: Present: normal inspection, full ROM. Absent: tenderness, meningismus, lymphadenopathy - Respiratory Respiratory exam: Present: normal lung sounds bilaterally. Absent: respiratory distress, wheezes, rales, rhonchi, stridor, chest wall tenderness, accessory muscle use, decreased breath sounds, prolonged expiratory - Cardiovascular Cardiovascular Exam: Present: regular rate, normal rhythm, normal heart sounds. Absent: irregular rhythm, systolic murmur, diastolic murmur, rubs, gallop - GI/Abdominal GI/Abdominal exam: Present: soft, normal bowel sounds - Rectal Rectal exam: Present: deferred - Extremities Exam Extremities exam: Present: normal inspection - Back Exam Back exam: Present: normal inspection - Neurological Exam Neurological exam: Present: alert, oriented X3, CN II-XII intact, normal gait - Expanded Neurological Exam Expanded Patient oriented to: Present: person, place, time Cerebellar function: Finger to Nose: Normal Upper motor neuron: Pronator Drift: Normal, Sensory Extinction: Normal Sensory exam: Upper Extremity Light Touch: Normal, Upper Extremity Pin Prick: Normal, Upper Extremity Temperature: Normal, UE 2 Point Discrimination: Normal, Lower Extremity Light Touch: Normal, Lower Extremity Pin Prick: Normal, Lower Extremity Temperature: Normal, LE 2 Point Discrimination: Normal Motor strength exam: RUE: 5, LUE: 5, RLE: 5, LLE: 5 Best Eye Response (Georgina): (4) open spontaneously Best Motor Response (Georgina): (6) obeys commands Best Verbal Response (Georgina): (5) oriented Georgina Total: 15 - Psychiatric Psychiatric exam: Present: normal affect, normal mood - Skin Skin exam: Present: warm, dry, intact, normal color. Absent: rash ED Course Vital Signs 12/30/17 11:24 Temperature 98.2 F Pulse Rate 58 L Respiratory 16 Rate Blood Pressure 119/78 O2 Sat by Pulse 99 Oximetry - Reevaluation(s) Reevaluation #1: 12/30/17 13:23 Patient is speaking in full sentences with no signs of distress noted. ED Medical Decision Making - Medical Decision Making 22-year-old male that presents to the ER for IV fluids. Patient is stable and was examined by me. Patient is able to tolerate fluids by mouth so patient received 2 cups of water with ice. Patient neurologically stable. No suicidal/ or homicidal dictation. Prior to discharge, patient stated he is not mad or upset anymore and does not need any psych consult. The patient was referred to Follow-up with a primary care doctor in 3-5 days or if symptoms worsen and continue return to emergency room as soon as possible. At time of discharge, the patient does not seem toxic or ill in appearance. No acute signs of distress noted. Patient agrees to discharge treatment plan of care. No further questions noted by the patient. ED Disposition Clinical Impression: Emotional upset Disposition: [id number] TO HOME OR SELFCARE Is pt being admited?: No Does the pt Need Aspirin: No Condition: Stable Additional Instructions: Follow-up with a primary care doctor in 3-5 days or if symptoms worsen and continue return to emergency room as soon as possible. Referrals: PRIMARY MD FOREIGN [Primary Care Provider] - 3-5 Days ARCHANA REDD MD [Staff Physician] - 3-5 Days [facility] [Outside] - 3-5 Days [facility] [Outside] - 3-5 Days
== END 2017-12-30 13:32 | disposition home or self-care (01) ==
LOC: ED 10:48
DX: F48.9 Nonpsychotic mental disorder, unspecified (principal); J45.909 Unspecified asthma, uncomplicated; F31.9 Bipolar disorder, unspecified; Z91.018 Allergy to other foods
CPT/HCPCS: 99282

== ENCOUNTER 2018-01-01 08:21 | Emergency (ER) | payer SELFPAY | END 2018-01-01 08:37 | disposition left against medical advice (07) | LOC: ED 08:21 | DX: Z00.8 Encounter for other general examination (principal); J45.909 Unspecified asthma, uncomplicated; F31.9 Bipolar disorder, unspecified; Z91.018 Allergy to other foods; Z53.21 Procedure and treatment not carried out due to patient leaving prior to being seen by health care provider ==